=== PATIENT | male | born 1990 | race Caucasian/White ===

== ENCOUNTER 2021-09-28 10:56 | Emergency (ER) | payer OTHER, SELFPAY ==
[2021-09-28 10:58] VITALS: BP 122/80; PULSE 83; RESP 18; TEMP 36.4; O2SAT 98
--- NOTE | 2021-09-28 11:48 | ED.EAR ---
HPI - Ear Problem General Chief complaint: Ear <ERNA Judd Last Filed: 09/28/21 12:18> Stated complaint: Hearing Issues Left Ear <ERNA Judd Last Filed: 09/28/21 12:18> Time Seen by Provider: 09/28/21 11:09 <ERNA Judd Last Filed: 09/28/21 12:18> Source: patient <ERNA Judd Last Filed: 09/28/21 12:18> Mode of arrival: ambulatory <ERNA Judd Last Filed: 09/28/21 12:18> Limitations: no limitations <ERNA Judd Last Filed: 09/28/21 12:18> History of Present Illness HPI Narrative: This is a 31-year-old male that presents to the emergency department for decreased hearing noted since yesterday in the left ear. No recent injuries or illnesses. Denies fever, pain or drainage from the ear. <ERNA Judd Last Filed: 09/28/21 12:18> Related Data Home medications: Home Medications Medication Instructions Recorded Confirmed Adderall 15 mg PO DAILY 09/28/21 09/28/21 <ERNA Judd Last Filed: 09/28/21 12:18> Allergies/adverse reactions: Allergies Allergy/AdvReac Type Severity Reaction Status Date / Time No Known Allergies Allergy Verified 09/28/21 11:05 <ERNA Judd Last Filed: 09/28/21 12:18> Review of Systems Review of Systems: CONSTITUTIONAL: Denies fever ENT: Denies otalgia. <ERNA Judd Last Filed: 09/28/21 12:18> All systems reviewed & are unremarkable except as noted in HPI and below <ERNA Judd Last Filed: 09/28/21 12:18> PMFSH Past Medical History Medical History: Medical History (Updated 09/29/21 @ 00:00 by Jhoan Dadoug) Asthma Depression Diabetes mellitus <ERNA Judd Last Filed: 09/28/21 12:18> Social History Social History: Social History Smoking packs per day: 0.5 Smoking cigarettes per day: 10.0 Smoking status: Current every day smoker Tobacco type: cigarettes Gender identity (if verbalized by the patient): Male <Leslie Young PA-C - Last Filed: 09/28/21 12:18> Exam Narrative: GENERAL: Well-appearing, well-nourished, and in no acute distress. HEAD: Normocephalic, atraumatic. EYES: EOMI. ENT: Bilateral cerumen impaction EXTREMITIES: Normal range of motion. No edema. SKIN: Warm, dry, no rash. NEURO: No focal deficits. Alert and oriented x3. PSYCH: Normal mood and affect <Leslie Young PA-C - Last Filed: 09/28/21 12:18> Course PRINCIPAL TECHNICAL ARCHITECT/PA Physician Supervision For this patient encounter, I reviewed the PRINCIPAL TECHNICAL ARCHITECT or PA documentation, treatment plan, and medical decision making <Elliott Buenrostro MD - Last Filed: 09/29/21 09:39> Vital Signs Vital signs: Vital Signs Temperature 97.6 F 09/28/21 10:58 Pulse Rate 83 09/28/21 10:58 Respiratory Rate 18 09/28/21 10:58 Blood Pressure 122/80 09/28/21 10:58 Pulse Oximetry 98 09/28/21 10:58 Temperature 97.6 F 09/28/21 10:58 Pulse Rate 83 09/28/21 10:58 Respiratory Rate 18 09/28/21 10:58 Blood Pressure 122/80 09/28/21 10:58 Pulse Oximetry 98 09/28/21 10:58 <Leslie Young PA-C - Last Filed: 09/28/21 12:18> Vital Signs Temperature 97.6 F 09/28/21 10:58 Pulse Rate 83 09/28/21 10:58 Respiratory Rate 18 09/28/21 10:58 Blood Pressure 122/80 09/28/21 10:58 Pulse Oximetry 98 09/28/21 10:58 Temperature 97.6 F 09/28/21 10:58 Pulse Rate 83 09/28/21 10:58 Respiratory Rate 18 09/28/21 10:58 Blood Pressure 122/80 09/28/21 10:58 Pulse Oximetry 98 09/28/21 10:58 <Elliott Buenrostro MD - Last Filed: 09/29/21 09:39> Procedures Ear Wax Removal Left Ear: Ear Wax Removal Date: 09/28/21 <Leslie Young PA-C - Last Filed: 09/28/21 12:18> Ear Wax Removal Time: 12:00 <Leslie Young PA-C - Last Filed: 09/28/21 12:18> Results: Re-examined:
== END 2021-09-28 12:37 | disposition home or self-care (01) ==
PROVIDERS: Emergency Provider Emergency Medicine; PCP Emergency Medicine
DX: H61.22 Impacted cerumen, left ear (principal); F32.A Depression, unspecified; E11.9 Type 2 diabetes mellitus without complications; F17.210 Nicotine dependence, cigarettes, uncomplicated; Z87.09 Personal history of other diseases of the respiratory system
CPT/HCPCS: 69209; 99282

== ENCOUNTER 2025-02-04 15:53 | Emergency (ER) | payer OTHER, SELFPAY ==
[2025-02-04] VITALS (10 sets, daily range): BP systolic 115–118; BP diastolic 72–83; PULSE 65–88; RESP 12–24; TEMP 36.6; O2SAT 93–99
--- NOTE | ~2025-02-04 | XR_ITS ---
EXAMINATION: XR chest 2V, 02/04/2025 16:55 CDT HISTORY: sob x 1 week COMPARISON: No comparisons available. Technique: 2 views obtained. Findings: The lungs are clear, no effusion. No pneumothorax. Heart is normal size. Mediastinal and hilar contours are within normal limits. Bony thorax no acute abnormality. Impression: No acute cardiopulmonary abnormality. Reviewed, dictated and finalized at location A. Impression: No acute cardiopulmonary abnormality.
--- NOTE | 2025-02-04 16:05 | ED.SOB ---
HPI - SOB/Dyspnea General Chief Complaint: Shortness of Breath/Dyspnea Stated Complaint: SOB Time Seen by Provider: 02/04/25 16:04 Source: patient and family () Mode of arrival: ambulatory Limitations: no limitations History of Present Illness HPI Narrative: 34-year-old male patient with past medical history emphysema and half pack per day smoker presents with shortness of breath of 1 week's duration. At baseline he occasionally has an intermittent nonproductive cough but with this episode he reports persistent near constant coughing productive of white mucus. He this is also associated with chest pain which he describes as a tightness across his chest. He states this is what makes it not feel like a typical problem related to his emphysema. He denies any exact known etiology of his emphysema but denies any knowledge of any congenital issues. Denies any fevers or chills. He tried taking [id number] DayQuil today. He is currently between primary care providers as he had been with his previous provider for 4 years but states he was a quack.Has an appointment to establish with someone new this Wednesday. At baseline he uses an albuterol inhaler, Spiriva, and nebulizer but these interventions not been working lately. Denies any sick contacts. Denies needing. Related Data Home Medications ?Medication ?Instructions ?Recorded ?Confirmed ?Last Taken ?Type Adderall 15 mg PO DAILY 09/28/21 09/28/21 09/27/21 History Allergies Allergy/AdvReac Type Severity Reaction Status Date / Time No Known Allergies Allergy Verified 02/04/25 15:53 [facility] Past Medical History Medical History Emphysema, unspecified Depression Diabetes mellitus Asthma Social History Social History (Updated 02/04/25 @ 16:38 by Li Cabrales MD) Social History: Smoking packs per day: 0.5 Smoking cigarettes per day: 10.0 Smoking status: Current every day smoker Tobacco type: cigarettes Living arrangements: with family Additional living arrangements comments: Gender identity (if verbalized by the patient): Male Exam Narrative: GENERAL: Well-appearing, well-nourished, and in no acute distress. HEAD: Normocephalic, atraumatic. EYES: Non injected, non icteric ENT: Nares clear, no rhinorrhea or epistaxis. Gross auditory acuity intact. NECK: Supple. No meningismus. CHEST: Speaking in full sentences. No respiratory distress. Lungs clear to auscultation bilaterally anteriorly and posteriorly without appreciable crackles or wheezes. Nonlabored. HEART: Regular rate and rhythm. ABDOMEN: Soft, nondistended. No rigidity or guarding. Not peritoneal EXTREMITIES: Normal range of motion. No lower extremity edema. SKIN: Warm, dry, no rash. NEURO: No focal deficits. Alert and oriented. Answering questions. Following commands. Normal speech without aphasia or dysarthria. PSYCH: Normal mood and affect. Course Vital Signs Vital signs: Vital Signs Temperature 97.8 F 02/04/25 16:09 Pulse Rate 75 02/04/25 16:09 Respiratory Rate 18 02/04/25 16:09 Blood Pressure 115/83 02/04/25 16:09 Pulse Oximetry 95 02/04/25 16:09 Oxygen Delivery Room Air 02/04/25 16:09 Temperature 97.8 F 02/04/25 16:09 Pulse Rate 65 02/04/25 17:54 Respiratory Rate 16 02/04/25 17:54 Blood Pressure 118/74 02/04/25 16:16 Pulse Oximetry 95 02/04/25 16:45 Oxygen Delivery Room Air 02/04/25 16:13 MDM - SOB/Dyspnea MDM Narrative Medical decision making narrative: Patient presents with shortness of breath and chest tightness. of 1 week's duration. States history of emphysema (had been in EMR as asthma). In the emergency department they are afebrile with vital signs within normal limits. Dimer within normal limits. Will not proceed with further work up for PE. But, given the leukocytosis, will proceed with CT imaging w/ contrast (not CTA). He denies recently being on steroids (stated he had but he lists only an antibiotic and ibuprofen). Patient denies any jorgito chest pain, more chest tightness. Troponin baseline normal. Will defer obtaining repeat given symptoms have been going on >24 hours. Viral swab negative. CXR negative as below. I am able to appreciate a very faint wheeze with forced expiratory cough. For this reason, reasonable to treat as mild emphysema exacerbation. Will give DuoNeb. Patient declines wanting to proceed with CT. Discussed reason why had planned on proceeding but ultimately he has the capacity to make decisions for himself as he does not appear to be altered. Will treat as mild emphysema exacerbation. First dose steroid given in the ED and rest of course prescribed. Will also give antibiotics be change in the nature of his cough. First dose given in the emergency department. Rest of course prescribed. Otherwise stable for discharge. Also given Rx for Tessalon perles ; does not have children but advised to keep out of reach. Differential Diagnosis Differential diagnosis: Likely acute exacerbation of chronic obstructive airways disease, community acquired pneumonia, asthma with exacerbation, pulmonary embolism and other (Acute viral syndrome, bronchitis; ACS; pleurisy) Lab Data Attestation: I reviewed the patient's lab results. Lab results narrative: Chemistry without marked abnormalities 02/04/25 16:39 02/04/25 16:39 Labs: Lab Results 02/04/25 Range/Units 16:39 WBC 18.2 H (4.5-10.0) K/mm3 RBC 4.67 (4.6-6.20) M/mm3 Hgb 14.7 (14.0-18.0) g/dL Hct 43.1 (42.0-52.0) % MCV 92.3 (80-100) fl MCH 31.5 (26-34) pg MCHC 34.1 (32-36) g/dl RDW 13.1 (11.5-14.5) % Plt Count 280 (150-375) k/mm3 MPV 9.1 (7.4-10.4) fl Immature Gran % (Auto) 0.4 (0-0.5) % Neut % (Auto) 79.7 H (45.5-73.1) % Lymph % (Auto) 14.2 L (18.3-44.2) % [place] % (Auto) 3.9 (2.6-8.5) % Eos % (Auto) 1.5 (0-4.4) % Baso % (Auto) 0.3 (0.2-1.2) % Lymph # (Auto) 2.59 (0.9-3.2) K/mm3 [place] # (Auto) 0.7 H (0.1-0.6) K/mm3 Eos # (Auto) 0.3 (0-0.3) K/mm3 Baso # (Auto) 0.1 (0.0-0.1) K/mm3 Abs Immat Gran (auto) 0.07 H (0.00-0.031) K/mm3 Absolute Neuts (auto) 14.5 H (1.3-6.7) K/mm3 Absolute Nucleated RBC 0.000 (0.0-0.012) K/mm3 Nucleated RBC % 0.0 (0.0-0.2) % D-Dimer < 0.27 (<0.48) ug/mL Sodium 138 (137-145) mmol/L Potassium 3.4 (3.4-5.0) mmol/L Chloride 104 (98-107) mmol/L Carbon Dioxide 26 (22-30) mmol/L Anion Gap 8 (4-12) mmol/L BUN 4 L (9-20) mg/dL Creatinine 0.65 L (0.7-1.3) mg/dL Estim Creat Clear Calc Not Reportable Estimated GFR > 60 (59 - ) Glucose 111 H (65-110) mg/dL Calcium 9.2 (8.4-10.2) mg/dL Total Bilirubin 0.6 (0.2-1.3) mg/dL AST 46 (17-59) U/L ALT 40 (6-50) U/L Alkaline Phosphatase 70 (38-126) U/L Troponin I < 0.012 (0.000-0.034) ng/mL Total Protein 7.0 (6.3-8.2) g/dL Albumin 4.3 (3.5-5.1) g/dL Lipase 66 (23-300) U/L Influenza A (RT-PCR) Negative (Negative) Influenza B (RT-PCR) Negative (Negative) RSV (RT-PCR) Negative (Negative) SARS-CoV-2 RNA (RT-PCR) Negative (Negative) Imaging Data Radiologist's impression: Impressions Chest X-Ray 02/04/25 17:15 Impression: No acute cardiopulmonary abnormality. ECG Data EKG #1: Attestation: I personally reviewed and interpreted this ECG as follows: ECG completion date: 02/04/25 ECG completion time: 16:23 Prior ECG tracings: not available for review (No prior for comparison) Interpretation: Normal sinus rhythm at a rate of 64 beats per minute. ME interval 128. QRS 82. QT/QTC 349/363. Normal progression across the precordial leads. No T-wave inversions. Normal axis. Normal ECG. Discharge Plan Discharge Clinical Impression: Cough, Chest tightness, Leukocytosis, Acute exacerbation of emphysema Patient Disposition: Home Condition: Stable Instructions: Antibiotic Form, Emphysema (DC), Leukocytosis (ED), Acute Cough (ED) Additional Instructions: Use the combination of medications prescribed. Keep your upcoming appointment to establish with a new primary care provider that is currently scheduled on Wednesday. Return to the emergency department with any new, worsening, unmanaged symptoms. You received your first dose of medications in the ED today. Patient Language: Citizen [place] Prescriptions: New benzonatate 100 mg capsule 100 mg PO BID PRN (Reason: cough) Qty: 20 0RF azithromycin 250 mg tablet 250 mg PO DAILY 4 Days Qty: 4 0RF Rx Instructions: start on day 2 of therapy albuterol sulfate [Ventolin HFA] 90 mcg/actuation HFA aerosol inhaler 1 inh inhalation QID PRN (Reason: shortness of breath or wheezing) Qty: 6.7 0RF prednisone 20 mg tablet 40 mg PO DAILY 4 Days Qty: 8 0RF Rx Instructions: start on 02/05 (received first dose in ED 02/04); take before 9am when possible No Action Adderall 15 mg PO DAILY Follow-up/Referrals: PHYSICIAN,FLOOR TRADER [Primary Care Provider, Internal Medicine] Stand Alone Forms: Work/School Release IP Time of Disposition: 18:16
--- NOTE | 2025-02-04 16:18 | ECG_ITS ---
Test Date: 2025-02-04 16:23:44 Measurements Intervals [place] Rate: 64 P: 46 NV: 128 QRS: 64 QRSD: 82 T: 44 QT: 349 QTc: 363 Interpretive Statements SINUS RHYTHM No previous ECG available for comparison Electronically Signed On 02-04-2025 18:51:13 CDT by Malik Fuentes M.D.
[2025-02-04 16:52] LABS: Hematocrit 43.1 % (42.0-52.0); Hemoglobin 14.7 g/dL (14.0-18.0); Immature Granulocyte Percent A 0.4 % (0-0.5); Lymphocytes Absolute Auto 2.59 K/mm3 (0.9-3.2); Mean Corpuscular HGB Conc 34.1 g/dl (32-36); Mean Corpuscular Hemoglobin 31.5 pg (26-34); Mean Corpuscular Volume 92.3 fl (80-100); Nucleated Red Blood Cells Absolute Auto 0.000 K/mm3 (0.0-0.012); Nucleated Red Blood Cells Perc 0.0 % (0.0-0.2); Platelet Count Result 280 k/mm3 (150-375); Red Blood Count 4.67 M/mm3 (4.6-6.20); White Blood Count 18.2 K/mm3 (4.5-10.0)
[2025-02-04 17:02] LABS: Alanine Aminotransferase 40 U/L (6-50); Albumin Level 4.3 g/dL (3.5-5.1); Alkaline Phosphatase 70 U/L (38-126); Anion Gap 8 mmol/L (4-12); Aspartate Amino Transferase 46 U/L (17-59); Bilirubin,Total 0.6 mg/dL (0.2-1.3); Blood Urea Nitrogen 4 mg/dL (9-20); Calcium 9.2 mg/dL (8.4-10.2); Carbon Dioxide 26 mmol/L (22-30); Chloride 104 mmol/L (98-107); Estimated Glomerular Filt Rate > 60; Glucose 111 mg/dL (65-110); Lipase 66 U/L (23-300); Potassium 3.4 mmol/L (3.4-5.0); Sodium 138 mmol/L (137-145); Total Protein 7.0 g/dL (6.3-8.2)
[2025-02-04 17:13] LABS: Troponin I < 0.012 ng/mL (0.000-0.034)
[2025-02-04 17:26] LABS: Influenza A QL RT-PCR Negative (Negative); Influenza B QL RT-PCR Negative (Negative); RSV RNA, RT-PCR Negative (Negative); SARS-CoV-2 RNA PCR Negative (Negative)
[2025-02-04] MEDS: IPRATROPIUM 0.5 MG/ALBUTEROL SULFATE 2.5 MG AMPUL.NEB 3 ML INHALATION (17:48)
[2025-02-04] MEDS: BENZONATATE 100 MG CAPSULE PO (18:07)
[2025-02-04] MEDS: AZITHROMYCIN 500 MG TABLET PO (19:16)
== END 2025-02-04 19:20 | disposition home or self-care (01) ==
PROVIDERS: Emergency Provider Student in an Organized Health Care Education/Training Program
DX: J44.1 Chronic obstructive pulmonary disease with (acute) exacerbation (principal); D72.829 Elevated white blood cell count, unspecified; R07.89 Other chest pain; R05.9 Cough, unspecified; F32.A Depression, unspecified; E11.9 Type 2 diabetes mellitus without complications
CPT/HCPCS: 36415; 71046; 80053; 83690; 84484; 85025; 85380; 87637; 93005; 94640; 99284; A9270; J7512